=== PATIENT | male | born 1980 | race Caucasian/White ===

== ENCOUNTER 2018-06-30 02:11 | Emergency (ER) | payer SELFPAY ==
[~2018-06-30] VITALS: Ht 180.3 cm; Wt 63.0 kg
[2018-06-30 02:15] VITALS: BP 115/67
[2018-06-30] MEDS ORDERED: BUPIVACAINE-MPF 0.5% 30 ML VIAL INJ ONE (02:55)
[2018-06-30] MEDS ORDERED: KETOROLAC 30 MG/ML VIAL IM ONE (02:55)
[2018-06-30] MEDS ORDERED: LIDOCAINE 1% 500 MG/50 ML VIAL INJ SCH (03:10)
[2018-06-30] MEDS ORDERED: LIDOCAINE MPF 1% - 5 mL VIAL 5 ML ONE (03:20)
[2018-06-30 03:41] VITALS: BP 116/64
== END 2018-06-30 03:41 | disposition home or self-care (01) ==
LOC: MED 02:11
DX: K04.7 Periapical abscess without sinus (principal); Z88.0 Allergy status to penicillin
CPT/HCPCS: 96372; 99284; J1885; J2001